=== PATIENT | male | born 1990 | race Caucasian/White ===

== ENCOUNTER 2018-10-16 22:08 | Inpatient (IN) ==
[2018-10-16 23:11] LABS: Appearance Urine Clear (Clear); Bilirubin Urine Negative (Negative); Blood Urine Negative (Negative); Color Urine Yellow; Glucose Urine UA Negative (Negative); Ketones Urine Negative (Negative); Leukocyte Esterase Urine Negative (Negative); Nitrite Urine Negative (Negative); Protein Urine Negative (Negative); Specific Gravity Urine 1.017 (1.000-1.030); Urobilinogen Urine Negative (Negative); pH Urine 6.5 (4.5-7.5)
[2018-10-16 23:29] LABS: Amphetamines+Metham, Urine Neg (Neg); Barbiturates, Urine Neg (Neg); Benzodiazepine, Urine Neg (Neg); Cocaine, Urine Neg (Neg); MDMA (Ecstacy), Urine Neg (Neg); Methadone, Urine Neg (Neg); Opiate, Urine Neg (Neg); Phencyclidine, Urine Neg (Neg)
[2018-10-17 00:03] LABS: Acetaminophen < 2 ug/ml (10-30); Salicylate 2.4 mg/dl (2.8-20)
[2018-10-17 00:30] LABS: Basophils # (auto) 0.02 K/uL (0-0.2); Basophils % (auto) 0.2 %; Eosinophils # (auto) 0.05 K/uL (0-0.5); Eosinophils % (auto) 0.6 %; Hematocrit (blood only) 46.2 % (42-52); Hemoglobin 16.1 g/dL (14.0-18.0); Immature Granulocytes # (auto) 0.03 K/uL (0.00-0.02); Immature Granulocytes % (auto) 0.3 %; Lymphocytes # (auto) 2.79 K/uL (1.2-3.4); Lymphocytes % (auto) 30.8 %; Mean Corpuscular Hgb Conc 34.8 g/dL (32-36); Mean Corpuscular Volume 85.1 fL (80-100); Mean Platelet Volume 10.4 fL (7.4-10.4); Monocytes # (auto) 0.56 K/uL (0.11-0.59); Monocytes % (auto) 6.2 %; Neutrophils % (auto) 61.9 %; Platelet Count 278 K/uL (130-400); RDW Coefficient of Variation 15.2 % (11.5-14.5); RDW Standard Deviation 47.3 fL (36.4-46.3); Red Blood Count 5.43 M/uL (4.7-6.1); White Blood Count 9.05 K/uL (4.8-10.8)
[2018-10-17 00:49] LABS: BUN Creatinine Ratio 10.7 (10-20); Calcium 9.6 mg/dl (8.5-10.1); Creatinine Clr Calc Pharmacy 167.7 ml/min; Est GFR (African American) 143.9; Est GFR (Non-African American) 124.2; Potassium 3.3 mmol/L (3.5-5.1)
--- NOTE | 2018-10-17 06:07 | Emergency Department Note ---
Entered by Hannah Lundberg acting as a scribe for Nathaly Peters DO History of Present Illness General Chief Complaint: Mental Health Evaluation Stated Complaint: 302 Time Seen by Provider: 10/16/18 22:59 Source: patient and RN notes reviewed History of Present Illness Onset (ago): hour(s) (several) History of same: Yes Context: + recent alcohol abuse Associated psychiatric symptoms: + suicidal ideation Associated symptoms: + other (negative abdominal pain) If self harm: no admits thoughts of self harm The patient is a 27 year old male who presents to the Emergency Room with complaints of an episode of a need for a mental health evaluation that began several hours prior to arrival. The patient states that him and his boyfriend broke up 2 days ago, and states that this was a mutual breakup after 8 months. He states that his ex-boyfriend called the police tonight on him. The patient denies trying to self harm or kill himself recently.The patient states that he had 5 beers tonight, but denies any drugs or liquor. The patient denies abdominal pain. Per the nursing notes, the patient had listed out several ways in which he was going to try to kill himself including "alcohol poisoning" and "taking too many medications", and described several times in which the patient had attempted to hurt himself over the past month. The patient states that he is currently on Lexapro. Home Medications Home Medications Medication Instructions Recorded Confirmed Type escitalopram oxalate 10 mg PO DAILY 09/14/18 10/17/18 History Seroquel 1 tab PO HS PRN 09/15/18 10/17/18 History Allergies Allergy/AdvReac Type Severity Reaction Status Date / Time Penicillins Allergy Anaphylaxis Verified 09/14/18 23:24 Past Med/Surg History Medical History Depression Alcohol abuse Seizure Surgical History Surgical history unknown Family History Other Family history unknown Social History Preferred Language: [place] Communication Ability: Effective Current Living Situation: Family Current Living Situation Comment: Lives with parents in [place]. Recent D/C from inpatient alcohol rehab. Feels Safe at Home: Yes Smoking Status: Current every day smoker Hx Alcohol Use: Yes Hx Substance Use: No Review of Systems See HPI for pertinent positives & negatives. and A total of 10 systems reviewed and were otherwise negative Physical Exam Vital Signs Vital Signs - 24 hr 10/16/18 22:10 10/17/18 01:30 10/17/18 03:37 Sepsis Recent Fever Within 48 Hours No Sepsis New/Unexplained Change in Mental Status No Sepsis Action Taken by Nursing No Action Required Pulse Rate 118 H Pulse Rate [Right Finger] 112 H 108 H Pulse Rhythm [Right Finger] Regular Pulse Strength [Right Finger] Normal Respiratory Rate 18 16 18 Respiratory Effort / Characteristics Non-Labored Non-Labored Spontaneous Respiratory Depth Normal Normal Respiratory Pattern Regular Regular Blood Pressure 135/84 Blood Pressure [Right Arm] 170/85 H 148/85 H Blood Pressure Mean 101 Blood Pressure Mean [Right Arm] 113 106 Blood Pressure Position [Right Arm] Lying Semi-fowlers Pulse Oximetry 96 98 96 Oxygen Delivery Method Room Air Room Air 10/17/18 05:21 Sepsis Recent Fever Within 48 Hours Sepsis New/Unexplained Change in Mental Status Sepsis Action Taken by Nursing Pulse Rate Pulse Rate [Right Finger] 92 H Pulse Rhythm [Right Finger] Pulse Strength [Right Finger] Respiratory Rate 18 Respiratory Effort / Characteristics Non-Labored Spontaneous Respiratory Depth Normal Respiratory Pattern Regular Blood Pressure Blood Pressure [Right Arm] 162/82 H Blood Pressure Mean Blood Pressure Mean [Right Arm] 108 Blood Pressure Position [Right Arm] Sitting Pulse Oximetry 95 Oxygen Delivery Method Room Air General: Pleasant and cooperative. Smells of alcohol. HEENT: Head - normocephalic and atraumatic Pupils are equal, round, and reactive to light. Extraocular eye muscles are intact, and sclera are anicteric. Nose - moist nasal mucosa without discharge. Mouth - moist buccal mucosa. Oropharynx is nonerythematous and there is no tonsillar exudate or edema noted. Neck: Supple; no JVD, nuchal rigidity, cervical lymphadenopathy, or auscultated bruits. Heart: Tachycardic rate and regular rhythm. There is a normal S1 and S2 with no murmurs, clicks, or gallops appreciated. Lungs: Clear to auscultation bilaterally with no wheezes, rales, or rhonchi. Abdomen: Soft, completely nontender, nondistended, with good bowel sounds. There are no palpable pulsatile masses or hepatosplenomegaly. There is no guarding, rigidity, or rebound noted. Extremities: No evidence of cyanosis, clubbing, or edema. There are easily palpable peripheral pulses. Skin: warm and dry with good turgor and no rashes. Psych: Elevated affect. Joking at times. Admits to alcohol use but no drug use. Denies SI. Course 2304: Past medical records reviewed. The patient was evaluated in room A8. A complete history and physical exam was performed. Labs were drawn as above. 0211: Upon reevaluation, the patient is asleep. 0549: The patient has been sleeping most of the night but wakes and is cooperative. He is scheduled to be medically cleared at 0900. 0630: The patient will be signed out to Dr. Deras at change of shift. Medical Decision Making Differential Diagnosis Differential diagnoses include alcohol intoxication, drug abuse, mood disorder, thought disorder, suicide attempt, and others were considered. Medical Records Attestation: I reviewed the patient's medical records. Home Medications Current Medication List: was personally reviewed by me Laboratory Data Attestation: I reviewed the patient's lab results. Result diagrams: 10/16/18 23:15 10/16/18 23:15 Lab Results 10/16/18 10/16/18 10/16/18 Range/Units 22:55 22:55 23:09 WBC (4.8-10.8) K/uL RBC (4.7-6.1) M/uL Hgb (14.0-18.0) g/dL Hct (42-52) % MCV (80-100) fL MCH (25-34) pg MCHC (32-36) g/dL RDW Std Deviation (36.4-46.3) fL RDW Coeff of Pro (11.5-14.5) % Plt Count (130-400) K/uL MPV (7.4-10.4) fL Immature Gran % (Auto) % Neut % (Auto) % Lymph % (Auto) % Tucker % (Auto) % Eos % (Auto) % Baso % (Auto) % Immature Gran # (Auto) (0.00-0.02) K/uL Neut # (Auto) (1.4-6.5) K/uL Lymph # (Auto) (1.2-3.4) K/uL Tucker # (Auto) (0.11-0.59) K/uL Eos # (Auto) (0-0.5) K/uL Baso # (Auto) (0-0.2) K/uL Sodium (136-145) mmol/L Potassium (3.5-5.1) mmol/L Chloride (98-107) mmol/L Carbon Dioxide (21-32) mmol/L Anion Gap (3-11) BUN (7-18) mg/dl Creatinine (0.6-1.4) mg/dl Est Cr Clr Drug Dosing ml/min Est GFR ( Amer) Est GFR (Non-Af Amer) BUN/Creatinine Ratio (10-20) Glucose (70-99) mg/dl Calcium (8.5-10.1) mg/dl TSH (0.300-4.500) uIu/ml Urine Color Yellow Urine Appearance Clear (Clear) Urine pH 6.5 (4.5-7.5) Ur Specific Lynn 1.017 (1.000-1.030) Urine Protein Negative (Negative) Urine Glucose (UA) Negative (Negative) Urine Ketones Negative (Negative) Urine Blood Negative (Negative) Urine Nitrite Negative (Negative) Urine Bilirubin Negative (Negative) Urine Urobilinogen Negative (Negative) Ur Leukocyte Esterase Negative (Negative) Salicylates 2.4 L (2.8-20) mg/dl Urine Opiates Screen Neg (Neg) Ur Methadone, Qual Neg (Neg) Acetaminophen < 2 L (10-30) ug/ml Urine Barbiturates Neg (Neg) Ur Phencyclidine (PCP) Neg (Neg) U Amphetamin/Meth Scrn Neg (Neg) MDMA (Ecstasy) Screen Neg (Neg) U Benzodiazepines Scrn Neg (Neg) Ur Cocaine Metabolite Neg (Neg) U Marijuana (THC) Screen Neg (Neg) Ethyl Alcohol mg/dL (0-3) mg/dl 10/16/18 10/16/18 10/16/18 Range/Units 23:09 23:15 23:15 WBC 9.05 (4.8-10.8) K/uL RBC 5.43 (4.7-6.1) M/uL Hgb 16.1 (14.0-18.0) g/dL Hct 46.2 (42-52) % MCV 85.1 (80-100) fL MCH 29.7 (25-34) pg MCHC 34.8 (32-36) g/dL RDW Std Deviation 47.3 H (36.4-46.3) fL RDW Coeff of Pro 15.2 H (11.5-14.5) % Plt Count 278 (130-400) K/uL MPV 10.4 (7.4-10.4) fL Immature Gran % (Auto) 0.3 % Neut % (Auto) 61.9 % Lymph % (Auto) 30.8 % Tucker % (Auto) 6.2 % Eos % (Auto) 0.6 % Baso % (Auto) 0.2 % Immature Gran # (Auto) 0.03 H (0.00-0.02) K/uL Neut # (Auto) 5.60 (1.4-6.5) K/uL Lymph # (Auto) 2.79 (1.2-3.4) K/uL Tucker # (Auto) 0.56 (0.11-0.59) K/uL Eos # (Auto) 0.05 (0-0.5) K/uL Baso # (Auto) 0.02 (0-0.2) K/uL Sodium 143 (136-145) mmol/L Potassium 3.3 L (3.5-5.1) mmol/L Chloride 106 (98-107) mmol/L Carbon Dioxide 25 (21-32) mmol/L Anion Gap 12.0 H (3-11) BUN 9 (7-18) mg/dl Creatinine 0.80 (0.6-1.4) mg/dl Est Cr Clr Drug Dosing 167.7 ml/min Est GFR ( Amer) 143.9 Est GFR (Non-Af Amer) 124.2 BUN/Creatinine Ratio 10.7 (10-20) Glucose 110 H (70-99) mg/dl Calcium 9.6 (8.5-10.1) mg/dl TSH 0.720 (0.300-4.500) uIu/ml Urine Color Urine Appearance (Clear) Urine pH (4.5-7.5) Ur Specific Lynn (1.000-1.030) Urine Protein (Negative) Urine Glucose (UA) (Negative) Urine Ketones (Negative) Urine Blood (Negative) Urine Nitrite (Negative) Urine Bilirubin (Negative) Urine Urobilinogen (Negative) Ur Leukocyte Esterase (Negative) Salicylates (2.8-20) mg/dl Urine Opiates Screen (Neg) Ur Methadone, Qual (Neg) Acetaminophen (10-30) ug/ml Urine Barbiturates (Neg) Ur Phencyclidine (PCP) (Neg) U Amphetamin/Meth Scrn (Neg) MDMA (Ecstasy) Screen (Neg) U Benzodiazepines Scrn (Neg) Ur Cocaine Metabolite (Neg) U Marijuana (THC) Screen (Neg) Ethyl Alcohol mg/dL 364.4 H (0-3) mg/dl Blood Pressure Blood Pressure Findings: Elevated blood pressure Blood Pressure Disposition: elevated BP felt to be situational MDM Narrative The patient is a 27 year old male who presents to the Emergency Room with complaints of an episode of a need for a mental health evaluation that began several hours prior to arrival. The patient was brought in to the hospital on a 302 warrant. The patient's X boyfriend contacted mobile crisis because he was concerned that the patient was trying to kill himself by excessive drinking and taking medications. Patient explains that he was drinking alcohol trying to get over the ex- boyfriend but was not trying to kill himself. The patient's blood alcohol level was extremely high at 364. He will not be medically cleared until 9 AM in the morning. At that time, he can have a more thorough psychiatric evaluation performed. He rested throughout the night here in the emergency department. The case will be discussed with Dr. Deras at change of shift. Impression & Plan Alcohol overdose, Mood disorder Discharge Plan Visit Data Chief Complaint: Mental Health Evaluation Stated Complaint: 302 ED Provider: Nathaly Peters Discharge Problem: Alcohol overdose, Mood disorder Forms Stand Alone Forms: My [facility] Prescriptions Prescriptions: No Action escitalopram oxalate 10 mg tablet 10 mg PO DAILY RF: 0 Seroquel tablet 1 tab PO HS PRN (Reason: Sleep) RF: 0 Discharge Problem: Alcohol overdose Qualifiers: Encounter type: initial encounter Injury intent: intentional self-harm Qualified Code(s): T51.92XA - Toxic effect of unspecified alcohol, intentional self-harm, initial encounter The scribe's documentation has been prepared under my direction and personally reviewed by me in its entirety. I confirm that the note above accurately reflects all work, treatment, procedures, and medical decision making performed by me.
--- NOTE | 2018-10-17 07:49 | Emergency Department Note ---
ED Visit Note The patient was taken in signout from Fran at the change of shift. Please see that note for details. The patient was pending clinical sobriety from [facility]. 302 Petition documented SI with multiple plans. CAN upheld 302 warrant. Upon clincial sobriety patient ultimately agreeable for voluntary admission. 201 signed. Admitted to 3S. : Alcohol overdose Qualifiers: Encounter type: initial encounter Injury intent: intentional self-harm Qualified Code(s): T51.92XA - Toxic effect of unspecified alcohol, intentional self-harm, initial encounter
[2018-10-17] MEDS ORDERED: ESCITALOPRAM OXALATE ORAL SOLN 10 MG/10 ML UDP PO STA (11:24)
[2018-10-17] MEDS ORDERED: ESCITALOPRAM OXALATE 10 MG TAB PO ONE (11:45)
[2018-10-17] MEDS ORDERED: ACETAMINOPHEN 325 MG TAB PO PRN (15:20)
[2018-10-17] MEDS ORDERED: MAGNESIUM HYDROXIDE SUSP 30 ML UDC PO PRN (15:20)
[2018-10-17] MEDS ORDERED: SODIUM CHLORIDE 0.65% NA SOLN 45 ML (OCEAN) PRN (15:20)
[2018-10-17] MEDS ORDERED: BISMUTH SUBSALICYLATE PER ML OMNICELL CHARGE PO PRN (15:20)
[2018-10-17] MEDS ORDERED: ALUMINUM/MAGNESIUM SUSP 30 ML UDC PO PRN (15:20)
[2018-10-17] MEDS ORDERED: QUETIAPINE FUMARATE 100 MG TABLET PO PRN (18:46)
--- NOTE | 2018-10-18 08:43 | History & Physical ---
Date of Service October 18, 2018 Impression / Recommendations Impression 27-year-old male who came to the area 2 months ago from [place] to be with a man he met online, has a history of depression and alcohol abuse with multiple hospitalizations for alcoholism, and has had 2 recent ER presentations for suicide attempts/statements and intoxication, ultimately admitted voluntarily yesterday, although he initially came in on a 302 warrant. Numerous suicide attempts and statements over the past 9 days clearly documented by his boyfriend in the petition (see above). Patient minimizes his alcohol use, although he does admit that he has a problem. He indicates willingness for outpatient substance abuse treatment, but it is not clear that he will have access to that as he reports having medical assistance in [place] and is unwilling to switch it to [place]. He will need a meeting with his boyfriend whom he lives with and a referral to [facility] to see if he is eligible for services. Inpatient treatment is medically necessary due to multiple suicide attempts and suicidal statements as detailed above, untreated substance abuse, and the fact that the patient continues to be at high risk for suicide as none of his risk factors have been mitigated and he has no outpatient treatment and few supports. (1) Alcohol abuse: 10/18 -patient has severe alcoholism. Reviewed his treatment with him, including numerous hospitalizations in [place] for sequelae of alcohol abuse/intoxication, and an ICU admission here and to the an 18 which required intubation and mechanical ventilation. Additionally, his drinking has caused relationship and work problems. He has very limited insight and appears to be minimizing the degree of his alcohol use. -Continue AWSS protocol with Ativan as needed for withdrawal. -Recommend inpatient rehab, which he is unwilling he is willing to consider outpatient treatment at [facility], but does not have insurance, so will need to meet with [facility] staff to determine if he qualifies for a financial assistance from their office. -He indicates an interest in Vivitrol, but we will need to determine ability to get the medication prior to starting it, as he states he cannot pay for it. -Brief intervention was offered and accepted. Intervention was greater than 5 min in length. Brief interventions include: 1. Assess Readiness to Quit, 2. Advise: Help Patient to Reduce or Abstain from Alcohol, 3. Agree: Set Specific, Feasible Goals, 4. Assist: Anticipate barriers, Problem-Solving Solutions. Social work to 5. Arrange: Referrals to appropriate treatment. Summary of intervention: The patient is in contemplation stage with regards to transtheoretical model of change. The patient is advised to decrease alcohol consumption due to depressant effects and risk of interactions with prescription medications. The patient agreed to outpatient treatment at [facility], and will be provided with recovery materials to continue to education self on how to cope with their condition without drinking. Present on Admission?: Yes (2) Mood disorder: 10/18 -continue every 15 minute checks for safety. -the patient reports a history of depression, for which he was started on escitalopram 10 mg by a psychiatrist (Dr. Popeye Zapien, ) in [place] in 06/2018. He is refusing to sign an NATALIE, but will need to coordinate care with his psychiatrist given that he continues to prescribe medications for the patient and needs to be aware of his recent symptoms and multiple episodes of care here. He denies current depressive symptoms, but we will need to continue to monitor and gather collateral information from his boyfriend. -The differential diagnosis includes substance-induced depression, major depressive disorder, adjustment disorder, and personality disorder. Present on Admission?: Yes Inventory Assets Strengths: has supports, willing for OP treatment Needs: sobriety, substance abuse treatment Risk Factors Assessment Male: Yes : Yes Do You Have Access To A Gun?: No Health Problems: No Mental Health Diagnoses: Yes Substance Use Disorders: Yes Previous Attempt: Yes Family History of Suicide: No Previous Psychiatric Hospitalization: No Hopelessness: No Smoker: Yes Protective Factors Assessment Adventism Beliefs: No : No Responsible for Young Children: No Employed: Yes ([employer]) Stable Relationships: No Supportive Family: Yes Good Rapport with Provider: No Psychiatric History Identifying Data MARY DOLL is a 27-year-old M who currently lives in [place] with his boyfriend, has a history of depression, substance abuse, and multiple ER visits, and was admitted on 10/17/18 15:20 on a 201 voluntary commitment for suicidal ideation with multiple plans, and multiple recent attempts by hanging, overdose, and crashing his car. Chief Complaint "Last time I was here it was alcohol related, when you're drunk it's a mood disorder". History of Present Illness Per review of the EMR, the patient has been seen several times in our facility for intoxication. He was admitted medically 04/06/2018 - 04/07/2018 after he was found down and unresponsive, with an alcohol level of 403.8 (remainder of UDS negative). He was admitted to the ICU, and intubated for airway protection. His friend reported that he was from [place] and had come to [facility] 04/01/2018, had a history of depression and suicide attempts, and had been drinking 1 bottle of wine or liquor daily. His mother was contacted and r eported that he had just gotten out of rehab for alcohol abuse, and was supposed to be living at a sober house. He refused recommendations for substance abuse treatment, and was discharged the following day. 09/14/2018 he presented to the ER with state police, was intoxicated, and per his boyfriend, had tried to jump out of a moving car to kill himself. His partner also reported the patient had tried to walk into traffic, overdose on alcohol, overdose on Seroquel, and tried to drive into oncoming traffic to kill both of them. He had been drinking heavily and his BAL in the ER was 262. His boyfriend completed a petitioning statement, but the patient left the ER before being seen. He later returned to the ER, and his partner reported that the patient dropped the wheel on the way home and tried to drive the car into oncoming traffic, and then tried to jump out of the vehicle. He remained in the ER overnight until he was sober, and then reported he did not recall the events of the prior day, denied SI, but admitted to depression and had recently been started on Lexapro 10 mg daily by his PCP in [place]. His boyfriend could not be contacted, and the patient was discharged from the ER, stating he planned to return to [place]. He again presented to the ER on 10/16/2018 on a 302 warrant with police, with reports that he had overdosed on alcohol and medications in a suicide attempt. He reported a recent breakup, but denied suicidal thoughts and suicide attempts, and said his ex-boyfriend was "crazy." 302 petition detailed multiple suicidal statements, suicide attempts, and overdoses over the past 9 days: "10/15/18 - tried to kill himself (also talked about killing himself) with alcohol and chemicals. (Try to OD). 10/13/18 - had to hide knives because he was aggressive and talked about killing himself. 09/16/18 - Tried to (did) grab the steering wheel to try to kill us both. 10/15/18 - hallucinated and thought I was God and asked to . 10/14/18 - mixed alcohol and medication to kill himself. 10/07/18 - tried to kill himself by ODing on Seroquel (my prescription). 10/09/18 - tried to hang himself. His (Mary's) plans to kill himself: 1. Alcohol poisoning. 2. Overdose. 3. Taking too much medication. 4. Getting drunk and getting hit by a car. 5. Getting drunk and driving my car off a ben[place] or into oncoming traffic. 6. Talked about suffocating himself." He remained in the ER overnight until he was sober, and was then evaluated and admitted to drinking until he blacks out several times a week, and reported he was seeing a psychiatrist in [facility] he refused to sign a release for. He reported moving from [place] to [facility] in August to be with a man he met online. He agreed to voluntary inpatient treatment. On my assessment, he reports ongoing problems with alcoholism, "I'm not supposed to be drinking, I'm trying to switch to a different realm, like marijuana, because it's healthier." States his family tells him he is an alcoholic, which he doesn't agree with. He reports drinking 3-4 times a week, on average 4 shots, but reports drinking much more at times. Denies h/o withdrawal, but reports multiple medical hospitalizations due to alcohol use. Reports he drank "a lot" prior to this hospitalization due to "a little tif" with his boyfriend, who "put himself single on Facebook." He reports drinking a half of a 750ml bottle of lauro, and his boyfriend then called police. He is aware of the information in the petition but says "it doesn't sound like anything I would do." He says he drinks excessively but thinks his boyfriend "assumed that was what was going on, but I was just ignoring him." He says he moved here from [place] in August to be with his BF whom he met online, and denies that he was in rehab. He says he is "tryi ng to get in touch with [facility] to get Vivitrol." He denies that he was ever in rehab or outpatient substance abuse treatment, but attended AA and was in a sober living house in [place] prior to moving here. He denies depressed mood, sleep disturbance, problems with energy and appetite, but says he is taking escitalopram from his psychiatrist in [place], whom he hasn't seen since June. He admits to poor adherence, stating he ran out a couple of days prior to hospitalization. He states he talked to his mother yesterday and "she was very pissed off" because of his drinking. He says he typically talks to her daily and she think she is an alcoholic, which he doesn't agree with. Denies symptoms of anxiety, burt, and psychosis. Past Psychiatric History Previous Psych History: Patient reports he saw a psychiatrist in [place], Dr. Popeye Zapien, several times in 06/2018. Current Psychiatric Diagnosis: Depression Outpatient Services: Psychiatrist in [place] as above Previous Psych Admissions: Denies Do You Have Access To A Gun?: No History of Previous Suicide Attempt: Yes Describe Attempts in the Past: reports OD, hanging attempt, threat to crash car in the past 30 day Past Medication Trials: Denies Allergies Allergy/AdvReac Type Severity Reaction Status Date / Time Penicillins Allergy Anaphylaxis Verified 09/14/18 23:24 Home Medications Home Medications Medication Instructions Recorded Confirmed Type escitalopram oxalate 10 mg PO DAILY 09/14/18 10/17/18 History Seroquel 100 mg PO HS 09/15/18 10/17/18 History Family History Family History of: Depression Family Mental Health History Comment: Mom Alcohol History Hx of Alcohol Use Over the Past 12 Months: Yes (hard liquor, 3-4 mixed drinks, 3-4x month, 10/16 last use) AUDIT Total Score: 7 Started drinking at age 23, and quickly became a problem, "partying all the time." Drinking multiple times/week to blackout, multiple suicide attempts while intoxicated, fights with boyfriend. Multiple medical hospitalizations due to alc ohol intoxication, so many that he cannot recall (all but the 2017 one in [place]). Longest period of sobriety was 8 months, just prior to coming to [place]. Smoking Use Have You Smoked or Used Tobacco Products in the Last 30 Days: Yes tobacco type: cigarettes Smoking Status: Current every day smoker Smoking packs per day: 0.5 Substance History Hx of Prescription Med Misuse Over the Past 12 Months: No Hx of Over the Counter Med Misuse Over the Past 12 Months: No Hx of Inhalent Misuse Over the Past 12 Months: No Hx of Organic Substance Use Over the Past 12 Months: No Hx of Illegal Substances/Street Drug Use Over Past 12 Months: No Problems as a Result of Past Substance Use: Relationships Ended, Life out of Control, Sustained Bodily Harm, Attempted Suicide, Estranged from Family and Other (multiple ER visits, self harm attempts) Personal History Living Arrangements: Apartment Living Arrangements Comments: with boyfriend in [place] Childhood: Grew up in [place], his family is still there, outside [place]. Parents when he was 10 years old, and his mother remarried; doesn't like his stepfather. Has a 12 y/o half brother, and states they aren't close. 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 Other Number Of Children: 0 Beliefs That Will Affect Care: None Current Legal Problems: No Hx Traumatic Life Events: No Patient History Medical History Depression Alcohol abuse Seizure Surgical History Surgical history unknown Family History Other Family history unknown Social History Preferred Language: Thai Communication Ability: Effective Champagne Maker Required: No Beliefs That Will Affect Care: None Current Living Situation: Family Current Living Situation Comment: Lives with parents in [place]. Recent D/C from inpatient alcohol rehab. Feels Safe at Home: Yes Smoking Status: Current every day smoker Tobacco Type: cigarettes Hx Alcohol Use: Yes Hx Substance Use: No Review of Systems Review of Systems: All systems reviewed & are unremarkable except as noted in HPI & below Physical Exam Psychiatric: Orientation: alert, oriented x 3 and cooperative Apperance: appropriately dressed and + disheveled Obese, unshaven and unkempt, nose pierced Eye Contact: good eye contact and + fair eye contact Motor Behavior: steady gait and station and no abnormal motor movements Speech: normal rate/rhythm/volume of speech Affect: euthymic affect Mood: no depressed mood and no anxious mood Thought Process: goal directed thought process Thought Content: reality based without delusions Suicidal Thoughts: denies suicidal thoughts Homicidal Thoughts: denies homicidal thoughts Hallucinations: no auditory hallucinations and no visual hallucinations Cognition: attention grossly intact and language grossly intact; + recent memory not intact Estimated Intelligence: average estimated intelligence Insight: + poor insight Judgement: + poor judgement Vital Signs (Past 24 Hours): Last Vital Signs Temp 36.5 C 10/18/18 06:43 Pulse 84 10/18/18 06:43 Resp 18 10/18/18 06:43 BP 164/99 H 10/18/18 06:43 Pulse Ox 99 10/17/18 17:02 Exam Statement: A physical exam was performed in the ER prior to admission to the unit by Dr. Peters . I accept that physical as correct/medical clearance for the inpatient physical exam. Results & Data Current Inpatient Medications Current Inpatient Medications: Current Inpatient Medications Acetaminophen (Tylenol) 650 mg PO Q4H PRN PRN Reason: Headache or Minor Fever Stop: 11/16/18 15:19 Al Hydrox/Mg Hydrox/Simethicone (Maalox) 30 ml PO Q4H PRN PRN Reason: GI Upset Stop: 11/16/18 15:19 Bismuth Subsalicylate (Kaopectate) 15 ml PO PRN PRN PRN Reason: Loose Stool Stop: 11/16/18 15:19 Escitalopram Oxalate (Lexapro) 10 mg PO DAILY RKISHNA Stop: 11/17/18 08:59 Hydroxyzine HCl (Vistaril) 25 mg PO Q4H PRN PRN Reason: Anxiety Stop: 11/16/18 15:19 Hydroxyzine HCl (Vistaril) 50 mg PO HSZ PRN PRN Reason: Insomnia Stop: 11/16/18 15:19 Magnesium Hydroxide (Milk Of Magnesia) 30 ml PO DAILY PRN PRN Reason: Heartburn Stop: 07/30/19 15:19 Quetiapine Fumarate (Seroquel) 100 mg PO HS PRN PRN Reason: insomnia Stop: 11/16/18 21:59 Sodium Chloride ([place] Nasal) 1 - 2 sprays NA PRN PRN PRN Reason: Nasal Dryness/Congestion Stop: 11/16/18 15:19 CPT Code CPT Code Initial Hospital Care: [id number]
[2018-10-18] MEDS: ESCITALOPRAM OXALATE 10 MG TAB PO SCH (09:23)
[2018-10-19] MEDS: ESCITALOPRAM OXALATE 10 MG TAB PO SCH (08:29)
--- NOTE | 2018-10-19 09:46 | Psychiatric Progress Note ---
Date of Service October 19, 2018 Impression / Recommendations Impression 27-year-old male who came to the area 2 months ago from [place] to be with a man he met online, has a history of depression and alcohol abuse with multiple hospitalizations for alcoholism, and has had 2 recent ER presentations for suicide attempts/statements and intoxication, ultimately admitted voluntarily, although he initially came in on a 302 warrant. Numerous suicide attempts and statements over the past 9 days clearly documented by his boyfriend in the petition (see above). Patient minimizes his alcohol use, although he does admit that he has a problem. Patient indicates a desire to pursue treatment with oral naltrexone, with intention for conversion to Vivitrol injections. Patient participated in a family meeting with his boyfriend, who appears to remain supportive. Patient believes that boyfriend will assist him in attempts to avoid alcohol and encouraged him to remain active in treatment. Inpatient treatment is medically necessary due to multiple suicide attempts and suicidal statements as detailed above, untreated substance abuse, and the fact that the patient continues to be at high risk for suicide as none of his risk factors have been mitigated and he has no outpatient treatment and few supports. Patient shares that the quetiapine prescription actually belonged to his boyfriend not to him. Given current severe obesity, and likely other metabolic concernswe will discontinue this medication in favor of alternative treatment. Patient indicates he has a prescription at home, that is his own, for trazodone. We will replace the quetiapine with trazodone as needed during this admission, to accurately mimic medications available to him at home. Risks, benefits, and potential side effects were reviewed with the patient who verbalized understanding and is agreeable with initiation of this as needed medication. (1) Alcohol abuse: 10/18 -patient has severe alcoholism. Reviewed his treatment with him, including numerous hospitalizations in [place] for sequelae of alcohol abuse/intoxication, and an ICU admission here and to the is an 18 which required intubation and mechanical ventilation. Additionally, his drinking has caused relationship and work problems. He has very limited insight and appears to be minimizing the degree of his alcohol use. -Continue AWSS protocol with Ativan as needed for withdrawal. -Recommend inpatient rehab, which he is unwilling he is willing to consider outpatient treatment at [facility], but does not have insurance, so will need to meet with [facility] staff to determine if he qualifies for a financial assistance from their office. -He indicates an interest in Vivitrol, but we will need to determine ability to get the medication prior to starting it, as he states he cannot pay for it. -Brief intervention was offered and accepted. Intervention was greater than 5 min in length. Brief interventions include: 1. Assess Readiness to Quit, 2. Advise: Help Patient to Reduce or Abstain from Alcohol, 3. Agree: Set Specific, Feasible Goals, 4. Assist: Anticipate barriers, Problem-Solving Solutions. Social work to 5. Arrange: Referrals to appropriate treatment. Summary of intervention: The patient is in contemplation stage with regards to transtheoretical model of change. The patient is advised to decrease alcohol consumption due to depressant effects and risk of interactions with prescription medications. The patient agreed to outpatient treatment at [facility], and will be provided with recovery materials to continue to education self on how to cope with their condition without drinking. 10/19 - Pt verbalizes interested in monthly Vivitrol injections. He is agreeable to initiation of oral naltrexone, and feels boyfriend would be able to pick-up prescription at a retail pharmacy for him to begin here - Will trial oral naltrexone for 30-days to allow for conversation to Vivitrol on an outpatient basis (2) Mood disorder: 10/18 -continue every 15 minute checks for safety. -the patient reports a history of depression, for which he was started on escitalopram 10 mg by a psychiatrist (Dr. Popeye Zapien, ) in [place] in 06/2018. He is refusing to sign an NATALIE, but will need to coordinate care with his psychiatrist given that he continues to prescribe medications for the patient and needs to be aware of his recent symptoms and multiple episodes of care here. He denies current depressive symptoms, but we will need to continue to monitor and gather collateral information from his boyfriend. -The differential diagnosis includes substance-induced depression, major depressive disorder, adjustment disorder, and personality disorder. 10/19 - Continue escitalopram 10mg daily - Will discontinue quetiapine, as this is not a personal prescription for the patient - he does indicate having a prescription for trazodone 50mg - will make this medication available for sleep as needed - Family meeting held with boyfriend, who seems to be supportive if patient is committed to abstaining from alcohol abuse and other substances Inventory Assets Strengths: has supports, willing for OP treatment Needs: sobriety, substance abuse treatment Risk Factors Assessment Male: Yes : Yes Do You Have Access To A Gun?: No Health Problems: No Mental Health Diagnoses: Yes Substance Use Disorders: Yes Previous Attempt: Yes Family History of Suicide: No Previous Psychiatric Hospitalization: No Hopelessness: No Smoker: Yes Protective Factors Assessment Mormonism Beliefs: No : No Responsible for Young Children: No Employed: Yes ([employer]) Stable Relationships: No Supportive Family: Yes Good Rapport with Provider: No Interval History Identifying Information MARY DOLL is a 27-year-old M who currently lives in [place] with his boyfriend, has a history of depression, substance abuse, and multiple ER visits, and was admitted on 10/17/18 15:20 on a 201 voluntary commitment for suicidal ideation with multiple plans, and multiple recent attempts by hanging, overdose, and crashing his car. Chief Complaint "I am actually feeling pretty good. It seems like things are pulling together." Review of Systems Notes Constitutional: reports improvement in sleep Cardiovascular: denied Respiratory: denied Gastrointestinal: denied Neurological: denied Psychiatric: denies symptoms other than stated above Total of at least 10 systems reviewed, pertinent positives as above and in HPI. Sleep Information Total Hours of Sleep: 5.5 Sleep Comments: pt on q-15 minute checks Meal Information Percent Meal Consumed - Breakfast: 100 Percent Meal Consumed - Lunch: 90 Percent Meal Consumed - Dinner: 100 Nutrition Comment: ate in ED Subjective Subjective Patient was seen & assessed and interval progress reviewed with Nursing. Staff reports that history obtained from the patient's mother does not reflect that which the patient has shared with staff. There is some indication that patient has previously been to rehab, or lived in a sober houseinformation that the patient has not willingly provided. Patient has been participating in group and recreational programming, and is hopeful to schedule a family meeting with his boyfriend for today. Patient was seen today to assess progress since admission. He states that he is feeling better, believing that outpatient support is being pulled together. Patient states that he had met with the social service director who is planning to refer him for outpatient drug and alcohol counseling, ideally with financial assistance from the base service unit. Patient states he is willing for these interventions. He inquires of this provider if it is possible for him to begin oral naltrexone, with intent to be converted to monthly Vivitrol injections. Patient reports a recognition that his alcohol use has become a problem, and is interested in making some changes regarding this. Patient states the meeting with his boyfriend went well this morning, and that his boyfriend will "personally ensure that I take the naltrexone until I can start getting the shot." Patient seems concerned that his relationship with his boyfriend in with his mother may be threatened if he is not able to rein in his alcohol use. Patient states that he does not have any mood concerns when he is not under the influence. He states, "if I cannot drink, I feel fine." The patient states that he began escitalopram due to feeling "a little down." He states he was offered the medication by his mother, and after finding it helpful requested prescription of his own. The patient states that the quetiapine is a prescription from his boyfriend, that he has been utilizing as needed for sleep issues. Patient states that he has a personal prescription for trazodone but has not yet used the medication. Patient is willing to pursue the possibility of starting naltrexone during his admission; however, was reminded that it is a nonformulary medication and he would be required to have someone metal pickling equipment operator the medication and bring it onto the unit for it to be administered. Patient seems motivated to pursue this treatment option. He denies any suicidal or homicidal thoughts at this time. Patient denies any other needs or concerns presently. Physical Exam Psychiatric Orientation: alert, oriented x 3 and cooperative Apperance: appropriately dressed and + disheveled Eye Contact: good eye contact Motor Behavior: steady gait and station and no abnormal motor movements Speech: normal rate/rhythm/volume of speech Affect: euthymic affect Mood: no depressed mood and no anxious mood "I feel pretty good, things are coming together." Thought Process: goal directed thought process and clear/coherent thought process Thought Content: reality based without delusions; no hopelessness and no worthlessness Suicidal Thoughts: denies suicidal thoughts Homicidal Thoughts: denies homicidal thoughts Hallucinations: no auditory hallucinations and no visual hallucinations Cognition: attention grossly intact and language grossly intact Estimated Intelligence: average estimated intelligence Insight: + fair insight Judgement: + fair judgement Vital Signs (Past 24 Hours) Last Vital Signs Temp 36.6 C 10/19/18 09:02 Pulse 76 10/19/18 09:02 Resp 18 10/19/18 09:02 BP 141/80 H 10/19/18 09:02 Pulse Ox 99 10/17/18 17:02 Results & Data Current Inpatient Medications Current Inpatient Medications: Current Inpatient Medications Acetaminophen (Tylenol) 650 mg PO Q4H PRN PRN Reason: Headache or Minor Fever Stop: 11/16/18 15:19 Al Hydrox/Mg Hydrox/Simethicone (Maalox) 30 ml PO Q4H PRN PRN Reason: GI Upset Stop: 11/16/18 15:19 Bismuth Subsalicylate (Kaopectate) 15 ml PO PRN PRN PRN Reason: Loose Stool Stop: 11/16/18 15:19 Escitalopram Oxalate (Lexapro) 10 mg PO DAILY KRISHNA Stop: 11/17/18 08:59 Last Admin: 10/19/18 08:29 Dose: 10 mg Documented by: Hydroxyzine HCl (Vistaril) 25 mg PO Q4H PRN PRN Reason: Anxiety Stop: 11/16/18 15:19 Hydroxyzine HCl (Vistaril) 50 mg PO HSZ PRN PRN Reason: Insomnia Stop: 11/16/18 15:19 Magnesium Hydroxide (Milk Of Magnesia) 30 ml PO DAILY PRN PRN Reason: Heartburn Stop: 11/16/18 15:19 Quetiapine Fumarate (Seroquel) 100 mg PO HS PRN PRN Reason: insomnia Stop: 11/16/18 21:59 Sodium Chloride ([place] Nasal) 1 - 2 sprays NA PRN PRN PRN Reason: Nasal Dryness/Congestion Stop: 11/16/18 15:19 Mental Health & Subst Abuse Tx Therapist Name of Therapist: None [facility] [employer] [facility] Name of [facility] [employer]: None Post Discharge Appointments Primary Care Physician Name Of Family Doctor: none Contact Information Discharge Discharge Address: [address] [place] [address] CPT Code CPT Code 86948
[2018-10-20] MEDS ORDERED: NALTREXONE HCL 50 MG PO SCH ×2 (09:00)
--- NOTE | 2018-10-20 09:00 | Discharge Summary ---
Date of Service October 20, 2018 History of Present Illness Per review of the EMR, the patient has been seen several times in our facility for intoxication. He was admitted medically 04/06/2018 - 04/07/2018 after he was found down and unresponsive, with an alcohol level of 403.8 (remainder of UDS negative). He was admitted to the ICU, and intubated for airway protection. His friend reported that he was from [place] and had come to [facility] 04/01/2018, had a history of depression and suicide attempts, and had been drinking 1 bottle of wine or liquor daily. His mother was contacted and reported that he had just gotten out of rehab for alcohol abuse, and was supposed to be living at a sober house. He refused recommendations for substance abuse treatment, and was discharged the following day. 09/14/2018 he presented to the ER with state police, was intoxicated, and per his boyfriend, had tried to jump out of a moving car to kill himself. His partner also reported the patient had tried to walk into traffic, overdose on alcohol, overdose on Seroquel, and tried to drive into oncoming traffic to kill both of them. He had been drinking heavily and his BAL in the ER was 262. His boyfriend completed a petitioning statement, but the patient left the ER before being seen. He later returned to the ER, and his partner reported that the patient dropped the wheel on the way home and tried to drive the car into oncoming traffic, and then tried to jump out of the vehicle. He remained in the ER overnight until he was sober, and then reported he did not recall the events of the prior day, denied SI, but admitted to depression and had recently been started on Lexapro 10 mg daily by his PCP in [place]. His boyfriend could not be contacted, and the patient was discharged from the ER, stating he planned to return to [place]. He again presented to the ER on 10/16/2018 on a 302 warrant with police, with reports that he had overdosed on alcohol and medications in a suicide attempt. He reported a recent breakup, but denied suicidal thoughts and suicide attempts, and said his ex-boyfriend was "crazy." 302 petition detailed multiple suicidal statements, suicide attempts, and overdoses over the past 9 days: "10/15/18 - tried to kill himself (also talked about killing himself) with alcohol and chemicals. (Try to OD). 10/13/18 - had to hide knives because he was aggressive and talked about killing himself. 09/16/18 - Tried to (did) grab the steering wheel to try to kill us both. 10/15/18 - hallucinated and thought I was God and asked to . 10/14/18 - mixed alcohol and medication to kill himself. 10/07/18 - tried to kill himself by ODing on Seroquel (my prescription). 10/09/18 - tried to hang himself. His (Amos's) plans to kill himself: 1. Alcohol poisoning. 2. Overdose. 3. Taking too much medication. 4. Getting drunk and getting hit by a car. 5. Getting drunk and driving my car off a benjamin or into oncoming traffic. 6. Talked about suffocating himself." He remained in the ER overnight until he was sober, and was then evaluated and admitted to drinking until he blacks out several times a week, and reported he was seeing a psychiatrist in [place] whom he refused to sign a release for. He reported moving from [place] to [facility] in August to be with a man he met online. He agreed to voluntary inpatient treatment. On my assessment, he reports ongoing problems with alcoholism, "I'm not supposed to be drinking, I'm trying to switch to a different realm, like marijuana, because it's healthier." States his family tells him he is an alcoholic, which he doesn't agree with. He reports drinking 3-4 times a week, on average 4 shots, but reports drinking much more at times. Denies h/o withdrawal, but reports multiple medical hospitalizations due to alcohol use. Reports he drank "a lot" prior to this hospitalization due to "a little tif" with his boyfriend, who "put himself single on Facebook." He reports drinking a half of a 750ml bottle of lauro, and his boyfriend then called police. He is aware of the information in the petition but says "it doesn't sound like anything I would do." He says he drinks excessively but thinks his boyfriend "assumed that was what was going on, but I was just ignoring him." He says he moved here from [place] in August to be with his BF whom he met online, and denies that he was in rehab. He says he is "trying to get in touch with [facility] to get Vivitrol." He denies that he was ever in rehab or outpatient substance abuse treatment, but attended and was in a sober living house in [place] prior to moving here. He denies depressed mood, sleep disturbance, problems with energy and appetite, but says he is taking esci talopram from his psychiatrist in [place], whom he hasn't seen since June. He admits to poor adherence, stating he ran out a couple of days prior to hospitalization. He states he talked to his mother yesterday and "she was very pissed off" because of his drinking. He says he typically talks to her daily and she think she is an alcoholic, which he doesn't agree with. Denies symptoms of anxiety, burt, and psychosis. Physical Exam Psychiatric Orientation: alert, oriented x 3 and cooperative Apperance: appropriately dressed and + disheveled Eye Contact: good eye contact Motor Behavior: steady gait and station and no abnormal motor movements Speech: normal rate/rhythm/volume of speech Affect: euthymic affect Mood: no depressed mood and no anxious mood "Pretty good" Thought Process: goal directed thought process, linear/logical thought process and clear/coherent thought process Thought Content: reality based without delusions; no hopelessness and no worthlessness Suicidal Thoughts: denies suicidal thoughts, denies suicidal plan and denies suicidal intent Homicidal Thoughts: denies homicidal thoughts Hallucinations: no auditory hallucinations and no visual hallucinations Cognition: attention grossly intact and language grossly intact Estimated Intelligence: average estimated intelligence Insight: + fair insight Judgement: + fair judgement Vital Signs (Past 24 Hours) Last Vital Signs Temp 36.5 C 10/20/18 06:46 Pulse 80 10/20/18 06:50 Resp 18 10/20/18 06:46 BP 148/93 H 10/20/18 06:50 Pulse Ox 99 10/17/18 17:02 Principal Diagnosis Mood disorder; alcohol abuse Psychiatric Data 27-year-old male admitted voluntarily for inpatient psychiatric treatment on 10/17/18 due to frequent presentations to the ED with alcohol intoxication. During these events, the patient had either verbalized suicidal ideation or taken steps toward harming himself. After several safety plan attempts from the ED, it was determined that the patient should receive inpatient psychiatric treatment. A 302 petitioning statement was completed by the patient's boyfriend outlining a history of patient's suicidal concerns. Pt had verbalized very little recall of these events after sobering up, and denied any mood concerns when not under the influence. He had recently been started on escitalopram 10mg daily by a psychiatric prescriber in [place], and found it helpful for some milder depressive concerns at the time. Pt also has utilized prescription medications prescribed to others, one of which being quetiapine. Pt was continued on escitalopram 10mg, and was provided with trazodone 50mg qHS prn sleep - as this was a home medication actually prescribed to and available for him at home. Pt participated in a family meeting involving his boyfriend, who requested the patient begin medication to reduce his urge to drink. Care was coordinated to all non-formulary naltrexone to be brought to the unit by the patient's boyfriend, and was initiated prior to discharge. Eventual plan is for conversion to Vivitrol injections - which [facility] be [facility]. During his admission, the patient had cancelled his [place] [facility], and was set up with D&A counseling and medication management through [facility]. Pt verbalized a motivation to remain compliant with treatment, and knows his boyfriend will hold him accountable. Pt has denied SI for the duration of his admission, but feels that he has been provided with additional supports which will increase the likelihood of his success. Pt is future oriented in discussion and reports hopefulness. He is requesting discharge at this time, as he feels he is prepared to continue his treatment on an outpatient basis. This is the most appropriate and least restrictive setting at this time, as the patient does not appear to be at acute risk of harm to himself or others and has been provided with outpatient resources for ongoing support. Discharge planning was reviewed with the patient and supports, he verbalized understanding and is agreeable with plan outline above. Day of Discharge Assessment Patient's case was reviewed and discussed during treatment team. Staff reports the patient has demonstrated engagement in treatment and has been supportive of peers. Pt was seen today to assess readiness for discharge. Pt states he is "still waking up" this morning, but overall has been feeling "pretty good." Pt is able to verbalize a clear aftercare plan, which includes referrals to [facility] and [facility] for D&A treatment. Pt received his initial dose of naltrexone this morning without an current complications. Pt feels his mood is "normal, fine" and denies any psychiatric concerns. He feels he, his boyfriend, and his mother are on the same page, and is happy to have their support. He reports a commitment to attending AA meetings in addition to his regularly scheduled D&A counseling sessions. Pt denies SI/HI and is future oriented during our conversation. Pt denies another other concerns at this time, and is interested in discharge today. Based on review of patient's case and their current presentation, risk of harm to self or others is no longer perceived to be acute. Management of symptoms on an outpatient basis seems the most appropriate and least restrictive setting. Pt seems appropriate for discharge with recommendation for consistent follow-up with outpatient psychiatric prescriber and therapist. Pt verbalized understanding of discharge plan reviewed and is agreeable with plan to be discharged home today. ROS: Constitutional: reports some morning grogginess, typical for him Cardiovascular: denied Respiratory: denied Gastrointestinal: denied Neurological: denied Psychiatric: denies symptoms other than stated above Total of at least 10 systems reviewed, pertinent positives as above and in HPI. Transition of Care Transition Of Care Record: was reviewed with the patient Advance Directives Advance Directives Information Provided: Yes Advance Directives: No Mental Health Advance Directive: No Advance Directives on File: No Living Will: No Power of Claim Administrator: No Advance Directives Reason:: Declines as Mental Health Visit. Risk Factors Assessment Presenting risk factors reviewed on discharge. Precipitating stressors mitiga delia by: admission for inpatient psychiatric observation and treatment, appropriate adjustments to medications to target symptoms, initiation of medications to reduce substance use urges, attendance of therapeutic treatment groups, development of healthy and effective coping strategies, involvement of outpatient supports, completion of a safety plan, confirmation of guns and weapons being secured, discussion regarding substance abuse and effects on mental health diagnoses, and education on diagnoses. Pt has demonstrated improvement in condition with regard to reported improvement in mood and commitment to abstain from alcohol use. At this time, patient is requesting discharge and is no longer considered to be at acute risk of harm to himself or others. Pt will be discharged with recommendation for ongoing outpatient psychiatric treatment. Male: Yes : Yes Do You Have Access To A Gun?: No Health Problems: No Mental Health Diagnoses: Yes Substance Use Disorders: Yes Previous Attempt: Yes Family History of Suicide: No Previous Psychiatric Hospitalization: No Hopelessness: No Smoker: Yes Protective Factors Assessment Yarsani Beliefs: No : No Responsible for Young Children: No Employed: Yes ([employer]) Stable Relationships: No Supportive Family: Yes Good Rapport with Provider: No Tobacco Cessation at Discharge Tobacco Cessation Medication Prescribed at Discharge: Offered & Pt Refused Total Time Total Time Spent: Greater Than 30 Minutes Total Time Includes: Examination of the patient, Discharge Planning, Medication Reconciliation and Communication with other providers Discharge Data Lab Results 10/16/18 10/16/18 10/16/18 22:55 22:55 23:09 WBC RBC Hgb Hct MCV MCH MCHC RDW Std Deviation RDW Coeff of Pro Plt Count MPV Immature Gran % (Auto) Neut % (Auto) Lymph % (Auto) [place] % (Auto) Eos % (Auto) Baso % (Auto) Immature Gran # (Auto) Neut # (Auto) Lymph # (Auto) [place] # (Auto) Eos # (Auto) Baso # (Auto) Sodium Potassium Chloride Carbon Dioxide Anion Gap BUN Creatinine Est Cr Clr Drug Dosing Est GFR ( Amer) Est GFR (Non-Af Amer) BUN/Creatinine Ratio Glucose Calcium TSH Urine Color Yellow Urine Appearance Clear Urine pH 6.5 Ur Specific [place] 1.017 Urine Protein Negative Urine Glucose (UA) Negative Urine Ketones Negative Urine Blood Negative Urine Nitrite Negative Urine Bilirubin Negative Urine Urobilinogen Negative Ur Leukocyte Esterase Negative Salicylates 2.4 L Urine Opiates Screen Neg Ur Methadone, Qual Neg Acetaminophen < 2 L Urine Barbiturates Neg Ur Phencyclidine (PCP) Neg U Amphetamin/Meth Scrn Neg MDMA (Ecstasy) Screen Neg U Benzodiazepines Scrn Neg Ur Cocaine Metabolite Neg U Marijuana (THC) Screen Neg Ethyl Alcohol mg/dL 10/16/18 10/16/18 10/16/18 23:09 23:15 23:15 WBC 9.05 RBC 5.43 Hgb 16.1 Hct 46.2 MCV 85.1 MCH 29.7 MCHC 34.8 RDW Std Deviation 47.3 H RDW Coeff of Pro 15.2 H Plt Count 278 MPV 10.4 Immature Gran % (Auto) 0.3 Neut % (Auto) 61.9 Lymph % (Auto) 30.8 [place] % (Auto) 6.2 Eos % (Auto) 0.6 Baso % (Auto) 0.2 Immature Gran # (Auto) 0.03 H Neut # (Auto) 5.60 Lymph # (Auto) 2.79 [place] # (Auto) 0.56 Eos # (Auto) 0.05 Baso # (Auto) 0.02 Sodium 143 Potassium 3.3 L Chloride 106 Carbon Dioxide 25 Anion Gap 12.0 H BUN 9 Creatinine 0.80 Est Cr Clr Drug Dosing 167.7 Est GFR ( Amer) 143.9 Est GFR (Non-Af Amer) 124.2 BUN/Creatinine Ratio 10.7 Glucose 110 H Calcium 9.6 TSH 0.720 Urine Color Urine Appearance Urine pH Ur Specific [place] Urine Protein Urine Glucose (UA) Urine Ketones Urine Blood Urine Nitrite Urine Bilirubin Urine Urobilinogen Ur Leukocyte Esterase Salicylates Urine Opiates Screen Ur Methadone, Qual Acetaminophen Urine Barbiturates Ur Phencyclidine (PCP) U Amphetamin/Meth Scrn MDMA (Ecstasy) Screen U Benzodiazepines Scrn Ur Cocaine Metabolite U Marijuana (THC) Screen Ethyl Alcohol mg/dL 364.4 H Hospital Course (1) Alcohol abuse: 10/18 -patient has severe alcoholism. Reviewed his treatment with him, including numerous hospitalizations in [place] for sequelae of alcohol abuse/intoxication, and an ICU admission here and to the is an 20 which required intubation and mechanical ventilation. Additionally, his drinking has caused relationship and work problems. He has very limited insight and appears to be minimizing the degree of his alcohol use. -Continue AWSS protocol with Ativan as needed for withdrawal. -Recommend inpatient rehab, which he is unwilling he is willing to consider outpatient treatment at [facility], but does not have insurance, so will need to meet with [facility] ID staff to determine if he qualifies for a financial assistance from their office. -He indicates an interest in Vivitrol, but we will need to determine ability to get the medication prior to starting it, as he states he cannot pay for it. -Brief intervention was offered and accepted. Intervention was greater than 5 min in length. Brief interventions include: 1. Assess Readiness to Quit, 2. Advise: Help Patient to Reduce or Abstain from Alcohol, 3. Agree: Set Specific, Feasible Goals, 4. Assist: Anticipate barriers, Problem-Solving Solutions. Social work to 5. Arrange: Referrals to appropriate treatment. Summary of intervention: The patient is in contemplation stage with regards to t ranstheoretical model of change. The patient is advised to decrease alcohol consumption due to depressant effects and risk of interactions with prescription medications. The patient agreed to outpatient treatment at [facility], and will be provided with recovery materials to continue to education self on how to cope with their condition without drinking. 10/19 - Pt verbalizes interested in monthly Vivitrol injections. He is agreeable to initiation of oral naltrexone, and feels boyfriend would be able to pick-up prescription at a retail pharmacy for him to begin here - Will trial oral naltrexone for 30-days to allow for conversation to Vivitrol on an outpatient basis (2) Mood disorder: 10/18 -continue every 15 minute checks for safety. -the patient reports a history of depression, for which he was started on escitalopram 10 mg by a psychiatrist (Dr. Popeye Zapien, ) in [place] in 06/2018. He is refusing to sign an NATALIE, but will need to coordinate care with his psychiatrist given that he continues to prescribe medications for the patient and needs to be aware of his recent symptoms and multiple episodes of care here. He denies current depressive symptoms, but we will need to continue to monitor and gather collateral information from his boyfriend. -The differential diagnosis includes substance-induced depression, major depressive disorder, adjustment disorder, and personality disorder. 10/19 - Continue escitalopram 10mg daily - Will discontinue quetiapine, as this is not a personal prescription for the patient - he does indicate having a prescription for trazodone 50mg - will make this medication available for sleep as needed - Family meeting held with boyfriend, who seems to be supportive if patient is committed to abstaining from alcohol abuse and other substances Mental Health & Subst Abuse Tx Therapist Name of Therapist: Brianda Henderson at [facility] Date of Therapist Appointment: 10/27/18 Time of Therapist Appointment: 2:30PM Therapy Appointment Comment: Per Leticia, funding will be available if needed Ship Captain Name of Ship Captain: None Post Discharge Appointments Primary Care Physician Name Of Family Doctor: none Smoking Cessation Counseling Tobacco Cessation Medication Prescribed at Discharge: Offered & Pt Refused Contact Information Discharge Discharge Address: [address] [place] [id number] Discharge Plan Discharge Items Patient Disposition: Home - Self-Care Reason For Visit: DEPRESSION,SI Discharge Diagnosis: Mood disorder, alcohol abuse Condition: Good Discharge Goals: Decrease discomfort, Improve disease control, Improve function, Increase independence, Learn about illness, Prevent disease, Specific goals and Therapeutic intervention Specific Goals: abstain from alcohol Activity: Resume your previous activity Non-emergency contact: Psychiatrist and Therapist Call non-emergency contact if: you have any medication questions and your symptoms worsen Follow-up/Referrals: PCP,SHIRA [Primary Care Provider] - Diet: Regular Addtl Provider Instructions: SPECIAL CARE INSTRUCTIONS: 1. Follow through with your scheduled aftercare appointments. If unable to keep an appointment, please call to reschedule. 2. Take your medication only as prescribed. Medication should not be changed or stopped without the approval of your doctor. In the event of worsening symptoms or concerns about side effects, contact your doctor immediately. 3. Utilize new healthy coping skills, anger management skills, and stress management skills learned during your hospitalization. Journal feelings and process them with a support person. Identify stressors or situations that may result in relapse, deterioration or inappropriate behaviors and develop a plan to deal with those issues. 4. If your coping skills are ineffective and you are in crisis, contact your outpatient providers for direction. If unable to reach your providers, please call the CAN HELP LINE AT or go to the closest Emergency Room. 5. Avoid alcohol and un-prescribed drugs. 6. You have been provided with the Mental Health Advance Directives Pamphlet for your review. AFTERCARE APPOINTMENTS: * Please call your insurance company prior to your scheduled appointment to confirm your aftercare providers are covered. Take your insurance information to your appointments. WHO TO CALL AND WHEN: Medical Emergencies: For questions or emergencies related to your hospital stay, please contact the Inpatient Behavioral Health Unit at [phone]. A assistant community director is on-call 10/11 for the Behavioral Health Unit for emergencies At any time you feel your situation is an emergency, you may also call 911 immediately. Your Doctors Instructions noted above were prepared by provider Daniella Lees PA-C. Prescriptions: New trazodone 50 mg Tablet 50 mg PO HS PRN (Reason: insomnia) 30 Days Qty: 30 RF: 0 naltrexone 50 mg Tablet 50 mg PO 0900 30 Days Qty: 30 RF: 0 Continued escitalopram oxalate 10 mg tablet 10 mg PO DAILY RF: 0 Discontinued Seroquel tablet 100 mg PO HS RF: 0 Visit Report Forms: Smoking Cessation Stand-Alone Forms: [facility] Discharge Orders: Discharge Order (Routine); Ordered 10/20/18 Ordered By: Daniella Lees Admission Data Admit Date/Time: 10/17/18 15:20 Attending Provider: Mary Anne Douglas Admit Provider: Mary Anne Douglas Primary Care Provider: PCP,NO Service: Psychiatry Other Interventions: Discharge Summary Assessment (RN) Last Done: 10/20/18 10:20 PSY Interdisciplinary Discharge Planning Last Done: 10/20/18 10:14 Pending Studies at Discharge: No DC Date/Time DO NOT enter until pt leaves facility: 10/20/18 11:15
[2018-10-20] MEDS: ESCITALOPRAM OXALATE 10 MG TAB PO SCH (09:13)
[2018-10-20] MEDS ORDERED: TRAZODONE HCL 50 MG TAB PO PRN (09:53)
== END 2018-10-20 11:15 | disposition home or self-care (01) | DRG 897 ==
LOC: ED 22:08 → 3S 10-17 15:20